=== PATIENT | female | born 2000 | race African-American/Black ===

== ENCOUNTER 2022-05-14 19:02 | Inpatient (IN) ==
[~2022-05-14 19:02] MED LIST: Famotidine 20 MG/2 ML VIAL IVP PRN; Metoclopramide 10 MG/2 ML VIAL IVP PRN; Naloxone 0.4 MG/ML INJ IVP PRN; Ondansetron 4 MG/2 ML VIAL IVP PRN; Ringers Solution, Lactated 1,000 ML IVC SCH
[2022-05-14 19:24] LABS: Basophils # 0.1 K/mcL (0.0-0.2); Basophils % 0.3 %; Eosinophils # 0.4 K/mcL (0.0-0.6); Eosinophils % 1.9 %; Hematocrit 38.2 % (35.3-44.9); Hemoglobin 13.2 g/dL (11.5-15.4); Immature Granulocytes % 0.6 % (0-4); Lymphocytes % 24.7 %; Mean Corpuscular HGB Conc 34.6 g/dL (31.6-35.5); Mean Corpuscular Hemoglobin 29.1 pg (28.0-33.3); Mean Corpuscular Volume 84.3 fL (83.0-100.0); Mean Platelet Volume 11.2 fL (9.4-12.4); Monocytes # 1.6 K/mcL (0.0-1.3); Monocytes % 8.1 %; Neutrophils # 13.1 K/mcL (1.6-8.9); Platelet Count 390 K/mcL (140-400); Red Blood Count 4.53 M/mcL (3.82-4.97); Red Cell Distribution Width 13.6 % (11.5-14.5); Segmented Neutrophils % 64.4 %; White Blood Count 20.3 K/mcL (4.3-11.1)
[2022-05-14] MEDS ORDERED: cefTRIAXone 1,000 MG in 0.9 % Sodium Chloride Mini Bag 100 ML IVPB ONE (19:36)
[2022-05-14] MEDS ORDERED: MetroNIDAZOLE 500 MG/100 ML 500 MG/100 ML BAG IVPB ONE (19:36)
[2022-05-14] MEDS ORDERED: Ibuprofen 600 MG TABLET PO PRN (19:46)
[2022-05-14] MEDS ORDERED: miSOPROStoL 100 MCG TABLET PO SCH (20:00)
[2022-05-14] MEDS ORDERED: Doxycycline 100 MG CAPSULE PO SCH (21:00)
== END 2022-05-14 22:10 | disposition home or self-care (01) | DRG 779 ==
LOC: 1NENULAB
PROVIDERS: ADMIT Obstetrics & Gynecology; ATTEND Obstetrics & Gynecology